=== PATIENT | male | born 1955 | race Caucasian/White ===

== ENCOUNTER 2017-10-02 12:26 | Emergency (ER) | payer OTHER ==
[~2017-10-02] VITALS: Ht 188 cm; Wt 77.5 kg
[2017-10-02 12:39] VITALS: BP 170/94
[2017-10-02] MEDS ORDERED: KETOROLAC 30 MG/1 ML IM ONE (14:00)
[2017-10-02] MEDS ORDERED: KETOROLAC 30 MG/1 ML ONE (14:13)
[2017-10-02 14:14] LABS: BASOPHILS # (AUTO) 0.04 x10^3/uL (0-0.1); BASOPHILS % (AUTO) 1 % (0-1); EOSINOPHILS # (AUTO) 0.19 x10^3/uL (0-0.4); EOSINOPHILS % (AUTO) 2 % (1-7); LYMPHOCYTES # (AUTO) 2.24 x10^3/uL (1-3.4); LYMPHOCYTES % (AUTO) 25 % (22-44); MD NO; MEAN CORPUSCULAR HEMOGLOBIN 32.9 pg (27.5-34.5); MEAN CORPUSCULAR HGB CONC 32.8 g/dL (33.2-36.2); MEAN CORPUSCULAR VOLUME 100.4 fL (81-97); MEAN PLATELET VOLUME 7.1 fL (7.4-10.4); MONOCYTES # (AUTO) 0.78 x10^3/uL (0.2-0.8); MONOCYTES % (AUTO) 9 % (2-9); NEUTROPHILS # (AUTO) 5.65 x10^3/uL (1.8-6.8); NEUTROPHILS % (AUTO) 64 % (42-75); PLATELET COUNT 334 x10^3/uL (130-400); RED BLOOD COUNT 4.36 x10^6/uL (4.38-5.82); RED CELL DISTRIBUTION WIDTH 14.6 % (9.4-14.8)
[2017-10-02 14:19] LABS: ALBUMIN 3.5 g/dL (3.4-5.0); ANION GAP 5 mmol/L (5-15); CALCIUM 8.7 mg/dL (8.5-10.1); CHLORIDE 106 mmol/L (98-107)
[2017-10-02] MEDS ORDERED: HYDROcodone/APAP 5/325 TABLET ONE (15:37)
[2017-10-02] MEDS ORDERED: HYDROcodone/APAP 5/325 TABLET PO ONE (16:00)
[2017-10-02] MEDS ORDERED: ONDANSETRON ODT 4 MG PO ONE (16:00)
[2017-10-02 16:11] LABS: MICROSCOPIC NOT IND
[2017-10-02] MEDS ORDERED: ONDANSETRON ODT 4 MG ONE (16:15)
[2017-10-02 16:18] LABS: CULTURE INDICATED? NO
== END 2017-10-02 16:31 | disposition home or self-care (01) ==
LOC: ED 16:21
DX: S73.112A Iliofemoral ligament sprain of left hip, initial encounter (principal); F17.200 Nicotine dependence, unspecified, uncomplicated; X58.XXXA Exposure to other specified factors, initial encounter; Y93.89 Activity, other specified; Y92.89 Other specified places as the place of occurrence of the external cause; Y99.2 Volunteer activity
CPT/HCPCS: 36415; 73502; 76857; 80048; 81003; 82040; 85025; 96372; 99285; J1885; Q0162

== ENCOUNTER 2017-10-04 10:09 | Emergency (ER) | payer SELFPAY ==
[~2017-10-04] VITALS: Ht 190.5 cm; Wt 76.0 kg
[2017-10-04 10:15] VITALS: BP 154/83
[2017-10-04 11:34] LABS: MICROSCOPIC INDICATED
[2017-10-04 11:53] LABS: CULTURE INDICATED? NO
== END 2017-10-04 12:11 | disposition home or self-care (01) ==
LOC: ED 12:00
DX: S76.012A Strain of muscle, fascia and tendon of left hip, initial encounter (principal); X58.XXXA Exposure to other specified factors, initial encounter; Y93.89 Activity, other specified; Y92.89 Other specified places as the place of occurrence of the external cause; Y99.8 Other external cause status
CPT/HCPCS: 81001; 82962; 99283